=== PATIENT | male | born 1950 | race Caucasian/White ===

== ENCOUNTER 2019-11-29 17:31 | Inpatient (IN) | payer OTHER ==
[2019-11-29] MEDS ORDERED: MECLIZINE 25 MG TABLET As Ordered ONE (18:30)
[2019-11-29] MEDS ORDERED: ASPIRIN 81 MG CHEW TABLET As Ordered ONE (23:52)
[2019-11-30] MEDS ORDERED: MECLIZINE 25 MG TABLET As Ordered ONE ×2 (03:01→12:41)
[2019-11-30] MEDS ORDERED: ATORVASTATIN 20 MG TAB As Ordered ONE (08:48)
[2019-11-30] MEDS ORDERED: ENOXAPARIN 40MG/0.4ML SYRINGE (J1650 PER 10MG) As Ordered ONE (08:48)
[2019-11-30] MEDS ORDERED: ASPIRIN 81 MG ENTERIC TAB As Ordered ONE (08:48)
[2019-11-30] MEDS ORDERED: MIRTAZAPINE 15 MG TAB As Ordered ONE (08:48)
[2019-11-30] MEDS ORDERED: SERTRALINE HCL 50 MG TAB As Ordered ONE (08:48)
[2019-12-01] MEDS ORDERED: MECLIZINE 25 MG TABLET As Ordered ONE ×2 (00:38→12:18)
[2019-12-01] MEDS ORDERED: ATORVASTATIN 20 MG TAB As Ordered ONE (09:35)
[2019-12-01] MEDS ORDERED: SERTRALINE HCL 50 MG TAB As Ordered ONE (09:36)
[2019-12-01] MEDS ORDERED: ENOXAPARIN 40MG/0.4ML SYRINGE (J1650 PER 10MG) As Ordered ONE (09:36)
[2019-12-01] MEDS ORDERED: MIRTAZAPINE 15 MG TAB As Ordered ONE (09:36)
[2019-12-01] MEDS ORDERED: ASPIRIN 81 MG ENTERIC TAB As Ordered ONE (09:36)
== END 2019-12-01 11:10 | disposition home health service (06) | DRG 55 ==
LOC: M ED 17:31 → M MS5PR 11-30 00:55
PROVIDERS: ADMIT General Practice; ATTEND General Practice
DX: D32.0 Benign neoplasm of cerebral meninges (principal); D69.6 Thrombocytopenia, unspecified; E66.9 Obesity, unspecified; E78.5 Hyperlipidemia, unspecified; F32.9 Major depressive disorder, single episode, unspecified; H40.9 Unspecified glaucoma; Z91.013 Allergy to seafood; Z79.899 Other long term (current) drug therapy